=== PATIENT | male | born 1975 | race African-American/Black ===

== ENCOUNTER 2017-07-15 10:08 | Emergency (ER) | payer OTHER ==
--- NOTE | 2017-07-15 10:46 | RAD ---
CHEST PA AND LATERAL TWO VIEWS: History: 38-year-old male with chest pains. Comparison: 06-01-14 FINDINGS: Cardiomegaly with left ICD. Minimal bilateral vascular congestion. No confluent pneumonia, overt dary ma, or pleural effusion. IMPRESSION: Cardiomegaly with mild vascular congestion. Left ICD. No pneumonia or other acute process. POS: [facility]ER
[2017-07-15 10:49] LABS: #Basophils 0.1 thou/uL (0.0-0.2); #Eosinphils 0.2 thou/uL (0.0-0.7); #Lymphocytes 1.8 thou/uL (1.20-3.40); #Monocytes 0.7 thou/uL (0.11-0.59); #Neutrophils 5.7 thou/uL (1.40-6.50); %Basophils 1.1 % (0.0-1.0); %Eosinophils 2.7 % (0.0-10.0); %Lymphocytes 21.4 % (21.0-51.0); %Monocytes 8.1 % (0.0-10.0); %Neutrophils 66.8 % (42.0-75.0); Hemoglobin 11.6 g/dL (14.0-18.0); Mean Corpuscular HGB CONC 32.2 g/dL (32.0-36.0); Mean Corpuscular Hemoglobin 30.2 pg (27.0-31.0); Mean Corpuscular Volume 93.8 fl (80.0-94.0); Mean Platelet Volume 7.6 fL (7.4-10.4); Platelet Count 245 thou/uL (130-400); RBC Distribution Width 14.4 % (11.5-14.5); Red Blood Cell (RBC) Count 3.85 mill/uL (4.70-6.10); White Blood Cell (WBC) Count 8.6 thou/uL (4.8-10.8)
[2017-07-15 11:13] LABS: ALT (SGPT) 25 U/L (8-55); AST (SGOT) 24 U/L (5-34); Alkaline Phosphatase 47 U/L (40-150); Anion Gap 19 mmol/L (10-20); BUN (Urea Nitrogen) 34 mg/dL (8.9-20.6); Calc. Creatinine Clearance 0 mL/min (70-130); Calcium 9.9 mg/dL (7.8-10.44); Carbon Dioxide 30 mmol/L (22-29); Chloride 99 mmol/L (98-107); Estimated GFR-MDRD 7; Globulin 3.4 g/dL (2.4-3.5); Glucose 90 mg/dL (70-105); Magnesium 2.3 mg/dL (1.6-2.6); Potassium 4.1 mmol/L (3.5-5.1); Protein, Total 7.4 g/dL (6.0-8.3); Sodium 144 mmol/L (136-145)
[2017-07-15 11:30] LABS: CKMB 4.5 ng/mL (0-6.6)
[2017-07-15 11:35] LABS: Bilirubin, Total 0.9 mg/dL (0.2-1.2); Troponin I 0.686 ng/mL (< 0.028)
== END 2017-07-15 12:23 | disposition short-term general hospital (02) ==
LOC: MADERS 10:08
DX: I21.4 Non-ST elevation (NSTEMI) myocardial infarction (principal); E87.70 Fluid overload, unspecified; I12.9 Hypertensive chronic kidney disease with stage 1 through stage 4 chronic kidney disease, or unspecified chronic kidney disease; N18.9 Chronic kidney disease, unspecified
CPT/HCPCS: 36415; 71020; 80053; 82553; 83735; 83880; 84484; 85025; 93005

== ENCOUNTER 2018-06-29 09:35 | Emergency (ER) | payer OTHER ==
[2018-06-29] MEDS ORDERED: Clindamycin 150 MG CAP ONE (11:28)
== END 2018-06-29 11:35 | disposition home or self-care (01) ==
LOC: MADERS 09:35
DX: L03.114 Cellulitis of left upper limb (principal); I49.9 Cardiac arrhythmia, unspecified; I13.2 Hypertensive heart and chronic kidney disease with heart failure and with stage 5 chronic kidney disease, or end stage renal disease; I50.9 Heart failure, unspecified; N18.6 End stage renal disease; Z99.2 Dependence on renal dialysis
CPT/HCPCS: 99283